=== PATIENT | male | born 1990 | race Caucasian/White ===

== ENCOUNTER 2018-08-28 21:54 | Emergency (ER) | payer OTHER ==
[~2018-08-28] VITALS: Ht 188 cm; Wt 87.0 kg
--- NOTE | 2018-08-28 22:05 | NUR ---
PT ON MONITOR AND VSS FRIENDS AT BEDSIDE AWAITING TEST RESULTS.
[2018-08-28 22:26] LABS: BASOPHILS # (AUTO) 0.04 x10^3/uL (0-0.1); BASOPHILS % (AUTO) 0 % (0-1); EOSINOPHILS # (AUTO) 0.29 x10^3/uL (0-0.4); EOSINOPHILS % (AUTO) 3 % (1-7); LYMPHOCYTES # (AUTO) 2.38 x10^3/uL (1-3.4); LYMPHOCYTES % (AUTO) 21 % (22-44); MD NO; MEAN CORPUSCULAR HEMOGLOBIN 30.4 pg (27.5-34.5); MEAN CORPUSCULAR HGB CONC 33.9 g/dL (33.2-36.2); MEAN CORPUSCULAR VOLUME 89.5 fL (81-97); MEAN PLATELET VOLUME 7.7 fL (7.4-10.4); MONOCYTES # (AUTO) 0.62 x10^3/uL (0.2-0.8); MONOCYTES % (AUTO) 6 % (2-9); NEUTROPHILS # (AUTO) 7.84 x10^3/uL (1.8-6.8); NEUTROPHILS % (AUTO) 70 % (42-75); PLATELET COUNT 241 x10^3/uL (130-400); RED BLOOD COUNT 4.71 x10^6/uL (4.38-5.82)
[2018-08-28 22:36] LABS: ALBUMIN 4.3 g/dL (3.4-5.0); ANION GAP 5 mmol/L (5-15); CALCIUM 8.9 mg/dL (8.5-10.1); CHLORIDE 106 mmol/L (98-107); CREATININE 1.23 mg/dL (0.7-1.3)
[2018-08-28 23:27] VITALS: BP 124/73
--- NOTE | 2018-08-28 23:27 | NUR ---
PT WITH POSITIVE ROAD TRIP AND WANTS TO GO HOME
== END 2018-08-29 00:25 | disposition home or self-care (01) ==
LOC: ED 22:48
DX: M79.652 Pain in left thigh (principal); R55 Syncope and collapse
CPT/HCPCS: 36415; 80048; 82040; 85025; 93005; 99284